=== PATIENT | male | born 1965 | race Caucasian/White ===

== ENCOUNTER → 2017-12-02 | Outpatient (REF) | payer BC | LOC: ZZSENDIN 17:09 | PROVIDERS: ATTEND Family Medicine | DX: M10.9 Gout, unspecified (principal); Z20.2 Contact with and (suspected) exposure to infections with a predominantly sexual mode of transmission | CPT/HCPCS: 84550; 86592; 86703; 86704; 86803; 87340; 87491; 87517; 87591 ==